=== PATIENT | male | born 1985 | race Two or more races ===

== ENCOUNTER 2019-05-23 00:19 | Emergency (ER) | payer MEDICAID ==
[~2019-05-23] VITALS: Ht 167.6 cm; Wt 77.3 kg
[2019-05-23 00:23] VITALS: BP 118/75
[2019-05-23] MEDS ORDERED: naproxen 500mg tablet PO ONE (01:10)
[2019-05-23] MEDS ORDERED: ondansetron 4mg/5ml UD cup PO ONE (01:10)
[2019-05-24] MEDS ORDERED: ROBCFL PO (18:46)
== END 2019-05-23 01:22 | disposition home or self-care (01) ==
LOC: ER 00:20
DX: K08.89 Other specified disorders of teeth and supporting structures (principal); R22.1 Localized swelling, mass and lump, neck; K13.0 Diseases of lips; F41.9 Anxiety disorder, unspecified; F31.9 Bipolar disorder, unspecified; F15.90 Other stimulant use, unspecified, uncomplicated; Z59.0 Homelessness; Z98.890 Other specified postprocedural states
CPT/HCPCS: 99284

== ENCOUNTER 2019-05-24 17:32 | Emergency (ER) | payer MEDICAID ==
[~2019-05-24] VITALS: Ht 167.6 cm; Wt 82.0 kg
[2019-05-24] MEDS ORDERED: ROBCFL PO (18:46)
[2019-05-24 19:14] VITALS: BP 101/47
== END 2019-05-24 19:13 | disposition home or self-care (01) ==
LOC: ER 17:33
DX: J06.9 Acute upper respiratory infection, unspecified (principal); F41.9 Anxiety disorder, unspecified; F31.9 Bipolar disorder, unspecified; F10.99 Alcohol use, unspecified with unspecified alcohol-induced disorder; F15.90 Other stimulant use, unspecified, uncomplicated; Z87.891 Personal history of nicotine dependence; Z59.0 Homelessness; Z79.899 Other long term (current) drug therapy; Y90.9 Presence of alcohol in blood, level not specified
CPT/HCPCS: 99283

== ENCOUNTER 2019-06-09 15:09 | Emergency (ER) | payer MEDICAID ==
[~2019-06-09] VITALS: Ht 165.1 cm; Wt 68.2 kg
[~2019-06-09 15:09] MED LIST: ROBCFL PO
--- NOTE | 2019-06-09 15:29 | NUR ---
Pt transported with ED staff, security and PD to CT scan.
[2019-06-09 15:52] VITALS: BP 148/91
== END 2019-06-09 16:05 ==
LOC: ER 15:10
DX: S00.83XA Contusion of other part of head, initial encounter (principal); F10.129 Alcohol abuse with intoxication, unspecified; F41.9 Anxiety disorder, unspecified; F31.9 Bipolar disorder, unspecified; F15.90 Other stimulant use, unspecified, uncomplicated; Z98.890 Other specified postprocedural states; Z59.0 Homelessness; Z79.899 Other long term (current) drug therapy; X58.XXXA Exposure to other specified factors, initial encounter; Y93.89 Activity, other specified; Y92.89 Other specified places as the place of occurrence of the external cause; Y99.8 Other external cause status
CPT/HCPCS: 70450; 99284

== ENCOUNTER 2019-06-19 00:53 | Emergency (ER) | payer MEDICAID ==
[~2019-06-19] VITALS: Ht 165.1 cm; Wt 78.0 kg
[2019-06-19 01:17] VITALS: BP 143/92
== END 2019-06-19 01:26 | disposition left against medical advice (07) ==
LOC: ER 00:56
DX: E86.0 Dehydration (principal); Z53.21 Procedure and treatment not carried out due to patient leaving prior to being seen by health care provider

== ENCOUNTER 2021-11-23 19:50 | Emergency (ER) | payer MEDICAID | END 2021-11-23 22:21 | disposition left against medical advice (07) | LOC: ER 19:51 | DX: Z00.8 Encounter for other general examination (principal); Z53.21 Procedure and treatment not carried out due to patient leaving prior to being seen by health care provider ==

== ENCOUNTER 2022-07-13 06:30 | Emergency (ER) | payer MEDICAID ==
[~2022-07-13] VITALS: Ht 165.1 cm; Wt 68.2 kg
[2022-07-13 06:54] VITALS: BP 122/85
[2022-07-13] MEDS ORDERED: DEXT15LI3 PO (08:42)
[2022-07-13] MEDS ORDERED: DIVA500T4 PO (08:42)
== END 2022-07-13 09:22 | disposition home or self-care (01) ==
LOC: ER 06:31
DX: R05.9 Cough, unspecified (principal); F31.9 Bipolar disorder, unspecified; F17.200 Nicotine dependence, unspecified, uncomplicated; F15.10 Other stimulant abuse, uncomplicated; F12.10 Cannabis abuse, uncomplicated; Z59.00 Homelessness unspecified; Z79.899 Other long term (current) drug therapy
CPT/HCPCS: 99283

== ENCOUNTER 2022-07-16 07:06 | Emergency (ER) | payer MEDICAID ==
[~2022-07-16 07:06] MED LIST changes: +DEXT15LI3 PO; +DIVA500T4 PO; -ROBCFL PO
== END 2022-07-16 08:09 | disposition left against medical advice (07) ==
LOC: ER 07:06
DX: Z00.00 Encounter for general adult medical examination without abnormal findings (principal); Z53.21 Procedure and treatment not carried out due to patient leaving prior to being seen by health care provider

== ENCOUNTER 2022-07-17 06:37 | Emergency (ER) | payer MEDICAID ==
[~2022-07-17] VITALS: Ht 167.6 cm; Wt 68.2 kg
[2022-07-17 07:06] VITALS: BP 140/92
[2022-07-17] MEDS ORDERED: erythromycin ophthalmic ointment 1gm tube RIGHTEYE ONE (08:15)
[2022-07-21] MEDS ORDERED: QUET200T PO (15:02)
== END 2022-07-17 08:38 | disposition home or self-care (01) ==
LOC: ER 06:38
DX: H01.001 Unspecified blepharitis right upper eyelid (principal); F41.9 Anxiety disorder, unspecified; F31.9 Bipolar disorder, unspecified; F17.200 Nicotine dependence, unspecified, uncomplicated; F12.90 Cannabis use, unspecified, uncomplicated; F15.90 Other stimulant use, unspecified, uncomplicated; Z59.00 Homelessness unspecified; Z98.890 Other specified postprocedural states; Z79.899 Other long term (current) drug therapy
CPT/HCPCS: 99284

== ENCOUNTER 2022-08-06 19:04 | Emergency (ER) | payer MEDICAID ==
[~2022-08-06] VITALS: Ht 167.6 cm; Wt 77.1 kg
[~2022-08-06 19:04] MED LIST changes: +QUET200T PO
[2022-08-06 19:30] VITALS: BP 122/65
[2022-08-06] MEDS ORDERED: HYDR-3686 PO (21:00)
[2022-08-06] MEDS ORDERED: CETI10CA PO (21:00)
[2022-08-06] MEDS ORDERED: DIVA500T4 PO (21:21)
== END 2022-08-06 21:47 | disposition home or self-care (01) ==
LOC: ER 19:04
DX: M79.671 Pain in right foot (principal); M79.672 Pain in left foot; F31.9 Bipolar disorder, unspecified; F12.10 Cannabis abuse, uncomplicated; F15.10 Other stimulant abuse, uncomplicated; Z76.0 Encounter for issue of repeat prescription
CPT/HCPCS: 99281

== ENCOUNTER 2022-08-24 18:07 | Emergency (ER) | payer MEDICAID ==
[~2022-08-24] VITALS: Ht 167.6 cm; Wt 72.7 kg
[~2022-08-24 18:07] MED LIST changes: +CETI10CA PO
[2022-08-24 18:48] VITALS: BP 194/92
== END 2022-08-24 19:21 | disposition home or self-care (01) ==
LOC: ER 18:08
DX: R23.4 Changes in skin texture (principal); F31.9 Bipolar disorder, unspecified; F15.20 Other stimulant dependence, uncomplicated; F12.90 Cannabis use, unspecified, uncomplicated; Z59.00 Homelessness unspecified
CPT/HCPCS: 99281

== ENCOUNTER 2022-09-05 01:13 | Emergency (ER) | payer MEDICAID ==
[~2022-09-05] VITALS: Ht 167.6 cm; Wt 79.5 kg
[2022-09-05 01:23] VITALS: BP 129/81
== END 2022-09-05 02:02 | disposition left against medical advice (07) ==
LOC: ER 01:14
DX: Z00.8 Encounter for other general examination (principal); F12.90 Cannabis use, unspecified, uncomplicated; Z76.0 Encounter for issue of repeat prescription; Z53.21 Procedure and treatment not carried out due to patient leaving prior to being seen by health care provider
CPT/HCPCS: 99281

== ENCOUNTER 2022-10-20 15:20 | Emergency (ER) | payer MEDICAID ==
[~2022-10-20] VITALS: Ht 167.6 cm; Wt 68.0 kg
[~2022-10-20 15:20] MED LIST changes: -DIVA500T4 PO
--- NOTE | 2022-10-20 16:01 | NUR ---
PT REFUSED VITALS AND WILL NOT COOPERATE WITH STAFF TO OBTAIN THEM
[2022-10-20] MEDS ORDERED: AMOX-117 PO (16:03)
== END 2022-10-20 16:21 ==
LOC: ER 15:21
DX: S41.132A Puncture wound without foreign body of left upper arm, initial encounter (principal); F41.9 Anxiety disorder, unspecified; F31.9 Bipolar disorder, unspecified; F12.90 Cannabis use, unspecified, uncomplicated; F15.90 Other stimulant use, unspecified, uncomplicated; Z72.89 Other problems related to lifestyle; Z98.890 Other specified postprocedural states; Z59.00 Homelessness unspecified; Z79.899 Other long term (current) drug therapy; W54.0XXA Bitten by dog, initial encounter; Y93.89 Activity, other specified; Y92.89 Other specified places as the place of occurrence of the external cause; Y99.8 Other external cause status
CPT/HCPCS: 99283

== ENCOUNTER 2023-08-27 01:33 | Emergency (ER) | payer MEDICAID ==
[~2023-08-27] VITALS: Ht 167.6 cm; Wt 77.3 kg
[2023-08-27 01:38] VITALS: TEMP 96.7
[2023-08-27] MEDS ORDERED: AZIT-164 PO (03:50)
[2023-08-27] MEDS ORDERED: PSEU120T10 PO (03:50)
[2023-08-27 03:59] VITALS: BP 114/85; PULSE 88; RESP 14; O2SAT 98
[2023-08-27] MEDS ORDERED: ALBU8HFA INH (13:37)
== END 2023-08-27 04:00 | disposition home or self-care (01) ==
LOC: ER 01:33
DX: J06.9 Acute upper respiratory infection, unspecified (principal); F12.90 Cannabis use, unspecified, uncomplicated; F15.90 Other stimulant use, unspecified, uncomplicated; Z79.2 Long term (current) use of antibiotics; Z79.899 Other long term (current) drug therapy
CPT/HCPCS: 99283

== ENCOUNTER 2023-08-27 12:31 | Emergency (ER) | payer MEDICAID ==
[~2023-08-27] VITALS: Ht 167.6 cm; Wt 77.3 kg
[~2023-08-27 12:31] MED LIST changes: +AZIT-164 PO; +PSEU120T10 PO
[2023-08-27 12:50] VITALS: BP 132/76; PULSE 90; RESP 20; O2SAT 100
[2023-08-27] MEDS ORDERED: ALBU8HFA INH (13:37)
[2023-08-27 14:13] VITALS: TEMP 97.4
== END 2023-08-27 14:16 | disposition home or self-care (01) ==
LOC: ER 12:32
DX: R05.9 Cough, unspecified (principal); F15.90 Other stimulant use, unspecified, uncomplicated; F12.90 Cannabis use, unspecified, uncomplicated; Z79.899 Other long term (current) drug therapy; Z79.2 Long term (current) use of antibiotics; Z72.89 Other problems related to lifestyle
CPT/HCPCS: 71046; 99283

== ENCOUNTER 2023-11-02 22:11 | Emergency (ER) | payer MEDICAID ==
[~2023-11-02] VITALS: Ht 167.6 cm; Wt 72.8 kg
[~2023-11-02 22:11] MED LIST changes: -AZIT-164 PO; -DEXT15LI3 PO; +DEXT15LI31 PO
[2023-11-02 22:12] VITALS: BP 131/86; PULSE 105; RESP 16; TEMP 98; O2SAT 99
[2023-11-02] MEDS ORDERED: HYDR-3686 PO (22:39)
[2023-11-02] MEDS ORDERED: MELA10TA2 PO (22:39)
[2023-11-02] MEDS: hydrOXYzine 25 MG tablet PO ONE (22:59)
== END 2023-11-02 23:01 | disposition home or self-care (01) ==
LOC: ER 22:12
DX: Z00.8 Encounter for other general examination (principal); F31.9 Bipolar disorder, unspecified; F12.90 Cannabis use, unspecified, uncomplicated; F15.10 Other stimulant abuse, uncomplicated
CPT/HCPCS: 99283; Q0177

== ENCOUNTER 2023-11-08 17:15 | Emergency (ER) | payer MEDICAID ==
[~2023-11-08] VITALS: Ht 167.6 cm; Wt 72.7 kg
[~2023-11-08 17:15] MED LIST changes: +HYDR-3686 PO; +MELA10TA2 PO
[2023-11-08 17:34] VITALS: BP 122/71; PULSE 94; RESP 18; TEMP 98.9; O2SAT 97
== END 2023-11-08 19:17 | disposition left against medical advice (07) ==
LOC: ER 17:16
DX: Z00.00 Encounter for general adult medical examination without abnormal findings (principal); F41.9 Anxiety disorder, unspecified; F12.90 Cannabis use, unspecified, uncomplicated; F15.90 Other stimulant use, unspecified, uncomplicated; F10.90 Alcohol use, unspecified, uncomplicated; Z59.00 Homelessness unspecified; Z79.899 Other long term (current) drug therapy
CPT/HCPCS: 99281; 99283

== ENCOUNTER 2023-11-17 17:26 | Emergency (ER) | payer MEDICAID ==
[~2023-11-17] VITALS: Ht 167.6 cm; Wt 71.7 kg
[2023-11-17 17:31] VITALS: BP 110/62; PULSE 89; RESP 18; TEMP 97.5; O2SAT 96
[2023-11-18] MEDS ORDERED: HYDR25CA PO (01:38)
[2023-11-18] MEDS ORDERED: MELA10TA2 PO (01:38)
[2023-11-18] MEDS ORDERED: QUET-1 PO (01:38)
== END 2023-11-17 19:22 | disposition left against medical advice (07) ==
LOC: ER 17:27
DX: R45.851 Suicidal ideations (principal); Z53.21 Procedure and treatment not carried out due to patient leaving prior to being seen by health care provider

== ENCOUNTER 2023-11-18 00:04 | Emergency (ER) | payer MEDICAID ==
[~2023-11-18] VITALS: Ht 167.6 cm; Wt 71.5 kg
[2023-11-18 00:17] VITALS: BP 113/74; PULSE 65; RESP 16; TEMP 98; O2SAT 98
[2023-11-18] MEDS ORDERED: MELA10TA2 PO (01:38)
[2023-11-18] MEDS ORDERED: QUET-1 PO (01:38)
[2023-11-18] MEDS ORDERED: HYDR25CA PO (01:38)
== END 2023-11-18 02:18 | disposition home or self-care (01) ==
LOC: ER 00:07
DX: Z76.0 Encounter for issue of repeat prescription (principal); F31.9 Bipolar disorder, unspecified; F12.90 Cannabis use, unspecified, uncomplicated; F15.90 Other stimulant use, unspecified, uncomplicated; Z88.8 Allergy status to other drugs, medicaments and biological substances; Z79.899 Other long term (current) drug therapy
CPT/HCPCS: 99281

== ENCOUNTER 2023-11-18 21:17 | Emergency (ER) | payer MEDICAID ==
[~2023-11-18] VITALS: Ht 177.8 cm; Wt 72.0 kg
[~2023-11-18 21:17] MED LIST changes: +HYDR25CA PO; +QUET-1 PO
[2023-11-18 22:16] VITALS: TEMP 97.5
[2023-11-18 23:23] LABS: EOSINOPHILS # (AUTO) 0.4 X10'3 (0-0.9); HEMOGLOBIN 12.8 g/dl (14.0-17.9)
[2023-11-18 23:25] LABS: BASOPHILS # (AUTO) 0.1 X10'3 (0-0.2); BASOPHILS % (AUTO) 0.7 % (0-1); EOSINOPHILS % (AUTO) 3.9 % (0-6); HEMATOCRIT 38.2 % (42.0-52.0); LYMPHOCYTES # (AUTO) 2.8 X10'3 (1.1-4.8); LYMPHOCYTES % (AUTO) 30.9 % (21-51); MEAN CORPUSCULAR HEMOGLOBIN 31.6 PG (27.0-31.0); MEAN CORPUSCULAR HGB CONC 33.5 g/dL (33.0-36.5); MEAN CORPUSCULAR VOLUME 94.1 FL (78-98); MEAN PLATELET VOLUME 6.4 FL (7.4-10.4); MONOCYTES # (AUTO) 0.9 X10'3 (0-0.9); MONOCYTES % (AUTO) 9.8 % (2-12); NEUTROPHILS % (AUTO) 54.7 % (42-75); PLATELET COUNT 390 X10'3 (140-440); RED BLOOD COUNT 4.05 X10'6 (4.70-6.10); RED CELL DISTRIBUTION WIDTH 15.5 % (11.5-14.5); WHITE BLOOD COUNT 9.1 X10'3 (4.5-11.0)
[2023-11-18 23:30] LABS: ALANINE AMINOTRANSFERASE 30 U/L (12-78); ALBUMIN 3.4 G/DL (3.4-5.0); ALBUMIN/GLOBULIN RATIO 1.1 (1.1-1.5); ALKALINE PHOSPHATASE 84 IU/L (46-116); ANION GAP 7 (8-16); ASPARTATE AMINO TRANSFERASE 17 U/L (10-37); BILIRUBIN,TOTAL 0.2 MG/DL (0.1-1.0); BLOOD UREA NITROGEN 9 MG/DL (7-18); BUN/CREATININE RATIO 14.3 (10.0-20.0); CALCIUM 7.8 MG/DL (8.5-10.1); CHLORIDE 110 MMOL/L (99-107); CREATININE 0.63 MG/DL (0.60-1.10); ETHANOL 299 MG/DL (<10); GLUCOSE 114 MG/DL (70-104); SALICYLATE 2.3 MG/DL (4.0-20.0); SODIUM 143 MMOL/L (135-145); TOTAL CARBON DIOXIDE 25.9 MMOL/L (24-32); TOTAL PROTEIN 6.6 G/DL (6.4-8.2); eCRCL 163 ML/MIN; eGFR > 90 ML/MIN
[2023-11-18 23:34] LABS: ACETAMINOPHEN < 2.0 UG/ML (10-30)
[2023-11-19 03:00] VITALS: BP 101/68; PULSE 67; RESP 16; O2SAT 98
== END 2023-11-19 07:03 | disposition home or self-care (01) ==
LOC: ER 21:18
DX: F10.129 Alcohol abuse with intoxication, unspecified (principal); D64.9 Anemia, unspecified; Y90.9 Presence of alcohol in blood, level not specified
CPT/HCPCS: 71045; 80053; 80320; 80329; 85025; 99285

== ENCOUNTER 2023-12-19 12:52 | Emergency (ER) | payer MEDICAID ==
[~2023-12-19] VITALS: Ht 167.6 cm; Wt 74.1 kg
[2023-12-19 14:03] LABS: BILIRUBIN,URINE NEGATIVE (Neg); CLARITY,URINE CLEAR (Clear); COLOR,URINE STRAW (Yellow); GLUCOSE, URINE NEGATIVE (Neg); KETONES,URINE NEGATIVE (Neg); LEUKOCYTE ESTERASE ,URINE NEGATIVE (Neg); NITRITES, URINE NEGATIVE (Neg); OCCULT BLOOD,URINE NEGATIVE (Neg); PROTEIN,URINE NEGATIVE (Neg); UROBILINOGEN,URINE 0.2 E.U/dL (0.2-1.0)
[2023-12-19 14:04] VITALS: BP 136/98; PULSE 82; RESP 30; TEMP 98.5; O2SAT 97
[2023-12-19 14:06] LABS: UA COLLECTION TYPE VOIDED
[2023-12-19] MEDS: diazepam inj 5 MG/ML inj. IV ONE (14:09)
[2023-12-19] MEDS: normal saline 1000ml 1,000 ML IV ONE (14:09)
[2023-12-19 14:14] LABS: BASOPHILS # (AUTO) 0.1 X10'3 (0-0.2); BASOPHILS % (AUTO) 0.7 % (0-1); EOSINOPHILS # (AUTO) 0.1 X10'3 (0-0.9); EOSINOPHILS % (AUTO) 0.8 % (0-6); HEMATOCRIT 36.5 % (42.0-52.0); HEMOGLOBIN 12.3 g/dl (14.0-17.9); LYMPHOCYTES # (AUTO) 2.1 X10'3 (1.1-4.8); LYMPHOCYTES % (AUTO) 19.7 % (21-51); MEAN CORPUSCULAR HEMOGLOBIN 31.8 PG (27.0-31.0); MEAN CORPUSCULAR HGB CONC 33.6 g/dL (33.0-36.5); MEAN CORPUSCULAR VOLUME 94.8 FL (78-98); MEAN PLATELET VOLUME 6.6 FL (7.4-10.4); MONOCYTES # (AUTO) 0.8 X10'3 (0-0.9); MONOCYTES % (AUTO) 7.6 % (2-12); NEUTROPHILS # (AUTO) 7.6 X10'3 (1.8-7.7); NEUTROPHILS % (AUTO) 71.2 % (42-75); PLATELET COUNT 289 X10'3 (140-440); RED BLOOD COUNT 3.86 X10'6 (4.70-6.10); RED CELL DISTRIBUTION WIDTH 14.5 % (11.5-14.5); WHITE BLOOD COUNT 10.6 X10'3 (4.5-11.0)
[2023-12-19 14:17] LABS: ALBUMIN 3.5 G/DL (3.4-5.0); ANION GAP 9 (8-16); BLOOD UREA NITROGEN 3 MG/DL (7-18); BUN/CREATININE RATIO 4.3 (10.0-20.0); CALCIUM 8.5 MG/DL (8.5-10.1); CHLORIDE 91 MMOL/L (99-107); CREATINE KINASE 269 U/L (39-308); ETHANOL < 10 MG/DL (<10); GLUCOSE 112 MG/DL (70-104); POTASSIUM 3.1 MMOL/L (3.5-5.1); SALICYLATE 2.9 MG/DL (4.0-20.0); SODIUM 125 MMOL/L (135-145); TOTAL CARBON DIOXIDE 24.9 MMOL/L (24-32); eCRCL 130 ML/MIN; eGFR > 90 ML/MIN
[2023-12-19 14:18] LABS: URINE AMPHETAMINE SCREEN NEGATIVE (Neg); URINE BARBITUATE SCREEN NEGATIVE (Neg); URINE BENZODIAZEPINES SCREEN NEGATIVE (Neg); URINE CANNABINOID SCREEN POSITIVE (Neg); URINE COCAINE SCREEN NEGATIVE (Neg); URINE METHADONE SCREEN NEGATIVE (Neg); URINE OPIATE SCREEN NEGATIVE (Neg); URINE PHENCYCLIDINE SCREEN NEGATIVE (Neg)
[2023-12-19 14:18] LABS: ACETAMINOPHEN < 2.0 UG/ML (10-30)
[2023-12-19] MEDS ORDERED: CLIN-97 PO (15:40)
== END 2023-12-19 15:56 | disposition home or self-care (01) ==
LOC: ER 12:52
DX: F41.9 Anxiety disorder, unspecified (principal); L72.0 Epidermal cyst; F12.90 Cannabis use, unspecified, uncomplicated; F15.10 Other stimulant abuse, uncomplicated; Z88.8 Allergy status to other drugs, medicaments and biological substances; Z79.899 Other long term (current) drug therapy
CPT/HCPCS: 36415; 80048; 80305; 80320; 80329; 81003; 82550; 85025; 96361; 96374; 99284; J3360; J7030

== ENCOUNTER 2024-01-22 02:18 | Emergency (ER) | payer MEDICAID ==
[~2024-01-22] VITALS: Ht 167.6 cm; Wt 63.6 kg
[~2024-01-22 02:18] MED LIST changes: +CLIN-97 PO
[2024-01-22] MEDS: naloxone 2mg/2ml inj ONE (02:51)
[2024-01-22 03:05] LABS: BASOPHILS # (AUTO) 0.1 X10'3 (0-0.2); BASOPHILS % (AUTO) 0.5 % (0-1); EOSINOPHILS # (AUTO) 0.4 X10'3 (0-0.9); EOSINOPHILS % (AUTO) 3.4 % (0-6); HEMOGLOBIN 11.6 g/dl (14.0-17.9); LYMPHOCYTES # (AUTO) 2.5 X10'3 (1.1-4.8); LYMPHOCYTES % (AUTO) 20.7 % (21-51); MEAN CORPUSCULAR HEMOGLOBIN 31.8 PG (27.0-31.0); MEAN CORPUSCULAR VOLUME 96.4 FL (78-98); MEAN PLATELET VOLUME 6.5 FL (7.4-10.4); MONOCYTES % (AUTO) 8.6 % (2-12); NEUTROPHILS # (AUTO) 8.1 X10'3 (1.8-7.7); NEUTROPHILS % (AUTO) 66.8 % (42-75); PLATELET COUNT 336 X10'3 (140-440); RED BLOOD COUNT 3.63 X10'6 (4.70-6.10); RED CELL DISTRIBUTION WIDTH 14.4 % (11.5-14.5); WHITE BLOOD COUNT 12.1 X10'3 (4.5-11.0)
[2024-01-22 03:22] LABS: URINE AMPHETAMINE SCREEN NEGATIVE (Neg); URINE BARBITUATE SCREEN NEGATIVE (Neg); URINE BENZODIAZEPINES SCREEN NEGATIVE (Neg); URINE CANNABINOID SCREEN POSITIVE (Neg); URINE COCAINE SCREEN NEGATIVE (Neg); URINE METHADONE SCREEN NEGATIVE (Neg); URINE OPIATE SCREEN NEGATIVE (Neg); URINE PHENCYCLIDINE SCREEN NEGATIVE (Neg)
[2024-01-22 03:25] LABS: ALANINE AMINOTRANSFERASE 29 U/L (12-78); ALBUMIN 3.1 G/DL (3.4-5.0); ALBUMIN/GLOBULIN RATIO 0.9 (1.1-1.5); ALKALINE PHOSPHATASE 109 IU/L (46-116); ANION GAP 8 (8-16); ASPARTATE AMINO TRANSFERASE 24 U/L (10-37); BILIRUBIN,TOTAL 0.2 MG/DL (0.1-1.0); BLOOD UREA NITROGEN 8 MG/DL (7-18); BUN/CREATININE RATIO 13.3 (10.0-20.0); CALCIUM 8.4 MG/DL (8.5-10.1); CHLORIDE 107 MMOL/L (99-107); ETHANOL 157 MG/DL (<10); GLUCOSE 112 MG/DL (70-104); POTASSIUM 3.5 MMOL/L (3.5-5.1); SODIUM 140 MMOL/L (135-145); TOTAL CARBON DIOXIDE 25.4 MMOL/L (24-32); TOTAL PROTEIN 6.4 G/DL (6.4-8.2); eCRCL 161 ML/MIN; eGFR > 90 ML/MIN
[2024-01-22 08:35] VITALS: BP 105/82; PULSE 57; RESP 14; TEMP 97.5; O2SAT 97
== END 2024-01-22 08:41 | disposition home or self-care (01) ==
LOC: MERGE 02:19 → EDBD 02:19 → ER 02:19
DX: R41.82 Altered mental status, unspecified (principal); F10.129 Alcohol abuse with intoxication, unspecified; R07.89 Other chest pain; Y90.9 Presence of alcohol in blood, level not specified
CPT/HCPCS: 36415; 80053; 80305; 80320; 85025; 93005; 99285; J2310; J7030; A4615

== ENCOUNTER 2024-04-29 19:58 | Emergency (ER) | payer MEDICAID ==
[~2024-04-29] VITALS: Ht 165.1 cm; Wt 73.9 kg
[2024-04-29 20:04] VITALS: BP 156/89; PULSE 88; RESP 16; TEMP 98.3; O2SAT 97
[2024-04-29] MEDS ORDERED: HYDR-3686 PO (20:25)
[2024-04-29] MEDS ORDERED: QUET50TA PO (20:25)
[2024-04-29] MEDS ORDERED: QUET-1 PO (20:25)
[2024-04-29 20:55] LABS: ANION GAP 7 (8-16); BLOOD UREA NITROGEN 9 MG/DL (7-18); BUN/CREATININE RATIO 10.3 (10.0-20.0); CALCIUM 8.4 MG/DL (8.5-10.1); CHLORIDE 93 MMOL/L (99-107); CREATININE 0.87 MG/DL (0.60-1.10); GLUCOSE 106 MG/DL (70-104); POTASSIUM 3.8 MMOL/L (3.5-5.1); SODIUM 125 MMOL/L (135-145); TOTAL CARBON DIOXIDE 25.5 MMOL/L (24-32); eCRCL 100 ML/MIN; eGFR > 90 ML/MIN
== END 2024-04-29 20:40 | disposition home or self-care (01) ==
LOC: ER 19:58
DX: F41.9 Anxiety disorder, unspecified (principal); Z76.0 Encounter for issue of repeat prescription; F31.9 Bipolar disorder, unspecified; F12.90 Cannabis use, unspecified, uncomplicated; F15.10 Other stimulant abuse, uncomplicated; Z88.8 Allergy status to other drugs, medicaments and biological substances
CPT/HCPCS: 36415; 80048; 99283

== ENCOUNTER 2024-05-24 00:51 | Emergency (ER) | payer MEDICAID ==
[~2024-05-24] VITALS: Ht 165.1 cm; Wt 70.5 kg
[~2024-05-24 00:51] MED LIST changes: +QUET50TA PO
[2024-05-24 00:54] VITALS: BP 138/78; PULSE 124; RESP 24; TEMP 98.2; O2SAT 97
[2024-05-24 01:24] LABS: BASOPHILS # (AUTO) 0.1 X10'3 (0-0.2); BASOPHILS % (AUTO) 0.7 % (0-1); EOSINOPHILS # (AUTO) 0.3 X10'3 (0-0.9); EOSINOPHILS % (AUTO) 1.9 % (0-6); HEMATOCRIT 40.1 % (42.0-52.0); HEMOGLOBIN 12.7 g/dl (14.0-17.9); LYMPHOCYTES # (AUTO) 3.9 X10'3 (1.1-4.8); LYMPHOCYTES % (AUTO) 22.9 % (21-51); MEAN CORPUSCULAR HEMOGLOBIN 30.9 PG (27.0-31.0); MEAN CORPUSCULAR HGB CONC 31.8 g/dL (33.0-36.5); MEAN CORPUSCULAR VOLUME 96.9 FL (78-98); MONOCYTES # (AUTO) 1.9 X10'3 (0-0.9); MONOCYTES % (AUTO) 11.5 % (2-12); NEUTROPHILS # (AUTO) 10.6 X10'3 (1.8-7.7); PLATELET COUNT 358 X10'3 (140-440); RED BLOOD COUNT 4.13 X10'6 (4.70-6.10); RED CELL DISTRIBUTION WIDTH 15.7 % (11.5-14.5); WHITE BLOOD COUNT 16.8 X10'3 (4.5-11.0)
[2024-05-24 01:38] LABS: ALANINE AMINOTRANSFERASE 28 U/L (12-78); ALBUMIN 4.1 G/DL (3.4-5.0); ALBUMIN/GLOBULIN RATIO 1.1 (1.1-1.5); ALKALINE PHOSPHATASE 109 IU/L (46-116); ANION GAP 25 (8-16); ASPARTATE AMINO TRANSFERASE 30 U/L (10-37); BILIRUBIN,TOTAL 0.4 MG/DL (0.1-1.0); BLOOD UREA NITROGEN 21 MG/DL (7-18); CALCIUM 9.3 MG/DL (8.5-10.1); CHLORIDE 102 MMOL/L (99-107); GLUCOSE 139 MG/DL (70-104); POTASSIUM 3.7 MMOL/L (3.5-5.1); PRO BRAIN NATRIURETIC PEPTIDE 47 PG/ML (0-125); SODIUM 139 MMOL/L (135-145); eCRCL 62 ML/MIN; eGFR 57 ML/MIN
[2024-05-24 01:51] LABS: TOTAL CARBON DIOXIDE 12.2 MMOL/L (24-32)
[2024-05-24] MEDS ORDERED: quetiapine 100mg tablet PO STA (02:37)
[2024-05-24] MEDS ORDERED: QUET-1 PO (02:40)
[2024-05-24] MEDS ORDERED: HYDR-3686 PO (02:40)
[2024-05-24] MEDS ORDERED: hydrOXYzine 25 MG tablet PO ONE (02:40)
== END 2024-05-24 03:33 ==
LOC: ER 00:51
DX: F41.9 Anxiety disorder, unspecified (principal); F31.9 Bipolar disorder, unspecified; F12.90 Cannabis use, unspecified, uncomplicated; F15.90 Other stimulant use, unspecified, uncomplicated; Z88.8 Allergy status to other drugs, medicaments and biological substances; Z79.899 Other long term (current) drug therapy; Z79.2 Long term (current) use of antibiotics
CPT/HCPCS: 36415; 80053; 83880; 84484; 85025; 93005; 99284